=== PATIENT | male | born 1980 | race Caucasian/White ===

== ENCOUNTER 2019-12-14 16:39 | Day surgery (SDC) | payer BC, SELFPAY ==
[2019-12-14] VITALS (7 sets, daily range): BP systolic 119–135; BP diastolic 72–90; PULSE 56–101; RESP 15–17; TEMP 36.2–37; O2SAT 94–99; BMI 22.8
--- NOTE | 2019-12-14 | HERN_PTH ---
PATIENT: KORI ARRIETA LOC: [facility] U#:[id number] AGE/SX: 39/M ROOM: RE12/14/[address]: Dr. Ileana Liu MD : 1980 BED: DIS: 12/15/2019 SPEC #: [id number] RECD: 12/16/19 07:35 STATUS: NELLY CARLEEN #: [id number] EDUARDO: 12/14/19 00:[address]: Ileana Liu DEPT: SURGICAL PATHOLOGY RECD BY: King Rubio ENTERED: 12/16/19 08:37 SP TYPE: Hernia OTHR DR: No Primary Care Phys Tissues: HERNIA Procedures: Surgery Specimen Level II HEADER OPERATION: Repair of left incarcerated inguinal hernia PRE-OP DIAGNOSIS: Incarcerated left inguinal hernia TISSUE SUBMITTED: Hernia sac MICROSCOPIC DIAGNOSIS Hernia sac, herniorrhaphy: Fibrosis and mild chronic inflammation. AM:martha 12/17/19 MICROSCOPIC DESCRIPTION Slides are reviewed. GROSS DESCRIPTION Received in fixative is one container labeled with the patient's name and designated hernia sac. The specimen consists of a piece of fibromembranous sac measuring 8 cm in length and up to 4 cm in diameter. No mass lesion is identified. Converter Operator sections are submitted in one cassette. / SJ:martha 12/16/19 TC:3 CPT: 73178
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
[2019-12-14] MEDS: Ondansetron 4 MG/2 ML Vial IV (17:14)
[2019-12-14] MEDS: Morphine 4 MG/ML Syringe IV ×3 (17:14→20:43)
[2019-12-14] MEDS: 0.9% Normal Saline 1,000 ML 1000 ML IV (17:14)
[2019-12-14 17:20] LABS: Absolute Lymphocyte Count 0.87 X10^3/uL (0.83-4.51); Basophil# 0.04 X10^3/uL; Basophil% 0.3 % (0-1); Eosinophil# 0.03 X10^3/uL; Eosinophils% 0.2 % (0-5); Hematocrit 46.3 % (40-54); Hemoglobin 15.8 g/dL (13.0-16.5); Lymphocyte # 0.87 X10^3/ul (4.0); Lymphocyte % 6.4 % (19-41); Mean Corp Hgb Conc 34.1 g/dL (32-36); Mean Corpuscular Hgb 32.6 pg (27.0-32.0); Mean Corpuscular Volume 95.5 fL (80-94); Mean Platelet Vol. 10.4 fl (6.2-12.0); Monocyte# 0.61 X10^3/uL; Monocyte% 4.5 % (0-10); NRBC Flagged by Analyzer 0 % (0-5); Neutrophil # 12.01 X10^3/uL (2.7-7.7); Neutrophil % 88.3 % (47-70); Platelet Count 291 K/mm3 (150-450); Red Blood Count 4.85 M/mm3 (4.6-6.2); White Blood Count 13.6 K/mm3 (4.4-11.0)
[2019-12-14 17:27] LABS: International Normalized Ratio 1.1; Partial Thromboplast Time 27.9 Seconds (24.1-36.2); Prothrombin Time (Protime)PT. 13.6 SECONDS (11.7-14.9)
[2019-12-14 17:36] LABS: ALB/GLOB Ratio 1.2 RATIO (0.9-2.4); AST(SGOT) 18 U/L (15-37); Alanine Aminotransfer ALT/SGPT 46 U/L (16-61); Albumin, Serum 4.5 g/dL (3.2-5.0); Alkaline Phosphatase 77 U/L (45-117); Anion Gap 8 (5-15); BUN 11 mg/dL (7-18); BUN/Creat Ratio 12.9 RATIO (10-20); Calcium,Total 9.3 mg/dL (8.5-10.1); Chloride 104 mmol/L (98-107); Creatinine, Serum 0.86 mg/dL (0.70-1.30); EST Glomerular Filtration Rate 104 mL/min (>60); Est Glom Filt Rate - Afr Amer 126 mL/min (>60); Estimated Creatinine Clearance 112.41 ml/min; Globulin 3.6 g/dL (2.2-4.2); Glucose 130 mg/dL (74-106); Lipase 103 U/L (73-393); Potassium 3.5 mmol/L (3.5-5.1); Protein, Total 8.1 g/dL (6.4-8.2); Sodium Level 139 mmol/L (136-145)
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
[2019-12-14] MEDS: Cefazolin 2 GM in 0.9% Normal Saline 100 ML IV (22:07)
[2019-12-14 22:48] LABS: Probe Check PASS; Specimen Processing Control PASS
[2019-12-14] MEDS: Bupivacaine 0.25% 30 ML Vial (23:28)
--- NOTE | 2019-12-14 23:29 | OP.PCM_ITS ---
Report of Operation Date of Procedure: 12/14/19 Pre-Operative Diagnosis: incarcerated left femoral hernia Post-Operative Diagnosis: same Surgery/Procedure Performed:: repair of incarcerated left femoral hernia Description of Surgical Findings:: large amount of scar tissue in the area from patient's previous orthopedic injuries with attenuated fascia in the area, incarcerated left femoral hernia with omentum and small bowel - no gangrene noted Type of Anesthesia:: General Anesthesiologist: Xiomy Loomis Specimen's removed: hernia sac Estimated Blood Loss (mL): 20 Fluids Replaced: 1000 ml RL Description of Procedure: After informed consent was obtained, the patient was brought to the Operating Room. Appropriate time out protocol was followed. The patient was placed in the supine position. The patient was then placed under anesthesia. The left groin area and lower torso and genitalia were then prepped with a sterile surgical skin preparation. Sterile surgical drapes were placed. This skin and subcutaneous tissues were then widely infiltrated with the local anesthetic. A skin incision was then made with a 15 blade scalpel over a previous incisional scar from the patient's previous orthopedic surgeries. This was slightly superior to the hernia site. The incision was carried down to the subcutaneous tissues. There was a large amount of scar tissue from the patient's previous surgery thus making delineation of the tissues and fascial layers difficult. The external oblique fascia was identified and an incision was made along its fibers, carefully avoiding any blood vessels/nerves. The fascia was followed distally until the external inguinal ring was noted and the hernia appeared tightly constricted at this point. This constriction was released. Of note, is that the patient's spermatic cord was more medial than normal anatomy - this may due to the patient's previous orthopedic surgeries. The incarcerated sac, once freed up, was able to be opened. There was a large amount of peritoneal fluid that emanated (having been trapped in the sac and there was small bowel and a large portion of omentum that had been also trapped in this sac. The tissues were adherent to the inside lining of this sac and therefore was by blunt and sharp dissection. Any hemorrhage was controlled with electrocautery. The omentum and small bowel, once freed from the sac, was then returned into the intraabdominal space. The sac was dissected free of surrounding tissues. The peritoneal sac opening was then closed with running 3-0 vicryl suture and the excess sac was transected and forwarded to pathology for analysis. Once the hernia was properly reduced, the anatomy was appropriately identified for repair. The spermatic cord had been from the hernia sac and replaced in its proper anatomical position. The peritoneal sac had traversed from the fe moral space and thus was anatomically consistent with a femoral hernia. Therefore, a Darcy type hernia repair would be required. However, because of the incarceration of bowel contents, I had told the patient that I would not use mesh for concern for infection and therefore there is a high likelihood of recurrence. Because the patient's previous surgeries and the resultant scar tissue, it was difficult to release the confluence of the transversalis and internal oblique fascia to suture it to James's ligament. Therefore a relaxing incision was made in the anterior rectus sheath so that the tissues could be approximated to James's ligament without tension. Thus the confluence of the transversalis and internal oblique fascia were approximated to James's ligament using interrupted 0 vicryl suture. This was done from the pubic tubercle to the level of overlying the femoral vessels and the internal ring was re-created and just large enough for the tip of my finger. The spermatic cord was then replaced in its proper anatomical position. The external oblique fascia was then reapproximated over the spermatic cord to close the roof of the inguinal canal with a running 0 vicryl suture. Lisa's fascia was reapproximated with interrupted 3-0 vicryl sutures. Each layer was carefully checked for hemostasis and any bleeding was controlled with electrocoagulation. The skin incision was reapproximated with a running 4-0 Monocryl suture. Sponge, needle and instrument count was verified and correct at time of closure. Cavilon and steristrips were placed to reinforce the skin closure and a sterile opsite dressing was applied. The patient was brought from to the Recovery Room in stable condition. - Complications none noted - Admit VTE Documentation VTE Present on Admission: Yes VTE Mechan Device Prophylaxis: SCD's
[2019-12-15] VITALS: BP 118/74; BP 135/90; PULSE 87; RESP 16; O2SAT 97
[2019-12-15 00:15] VITALS: BP 111/69; BP 135/90; PULSE 73; RESP 16; TEMP 36.4; O2SAT 97
[2019-12-15 00:35] VITALS: BP 109/71; PULSE 68; RESP 16; TEMP 36.6; O2SAT 98; BMI 23.0
[2019-12-15 00:38] VITALS: BMI 23.0
[2019-12-15 02:35] VITALS: BP 115/68; PULSE 81; RESP 18; TEMP 37.1; O2SAT 97
[2019-12-15 04:50] VITALS: BP 107/63; PULSE 93; RESP 16; TEMP 36.6; O2SAT 97
[2019-12-15 08:22] VITALS: BP 131/83; PULSE 78; RESP 18; TEMP 37.3; O2SAT 100
--- NOTE | 2019-12-15 08:23 | NURSING ---
pt offerred norco but declines at this time
[2019-12-15] MEDS: Lactated Ringers 1,000 ML 100 ML IV (09:00)
[2019-12-15] MEDS: Ibuprofen 600 MG Tablet PO (10:43)
--- NOTE | 2019-12-15 11:13 | PCM.DC.HER ---
Discharge Diet: No Restrictions - if you feel constipated, may take over the counter laxatives, drink plenty of fluids Discharge Activity: Return to Normal Activity, May not drive while taking narcotic pain medications. Lifting Restrictions: no lifting/pushing/pulling greater than 20 pounds until January 27, 2020 Call your doctor if your incision/area has: Continuous Slow Oozing, Foul Smelling Discharge Call your doctor if you observe: Fever of 101 or Higher Additional Dressing/Incision Instructions:: Leave dressing in place. May get wet in shower. Do not soak - no tub baths/swimming. Apply ice to area liberally for comfort and as tolerated Additional Instructions: Recommended pain control regimen - May take 600 mg ibuprofen (Motrin) and then in 3-4 hours, may take 650 mg acetaminophen (Tylenol), then in 3-4 hours may take 600 mg ibuprofen, then in 3-4 hours may take 650 mg acetaminophen and so on for 2-3 days May take narcotic pain medication for pain that is not controlled by above and at night for comfort through the night Leave dressings in place May get dressings wet in shower - do not scrub in the area and pat dry Do not soak - no tub baths/swimming If dressing appears to be soiled/open at one end/no longer sealed - may remove dressing but leave site uncovered (do not replace with any type of dressing) - leave steristrips in place - may get wet but do not scrub in the area and pat dry Swelling and bruising will occur in the area of the incision and also the scrotum Ice packs applied to the area will help, apply as long as tolerated and for your comfort Also can elevate scrotum by lying in a Lazy-boy chair position with legs up and place a folded towel across your upper thighs, place scrotum on top of towel and this will help drain the extra fluid from the scrotum back into your torso Allergies/Adverse Reactions: Allergies No Known Allergies Allergy (Verified 12/14/19 16:39) Medications to take at Discharge Hydrocodone Bitart/Apap 5-325 [[place] 5MG-325MG] 1 tab PO Q8H PRN PRN 3 Days #9 tab 12/15/19 The following prescriptions were given: Hydrocodone Bitart/Apap 5-325 [[place] 5MG-325MG] 1 tab PO Q8H PRN PRN 3 Days #9 tab PRN Reason: Pain Score 6-10/10 Prescription Printed Primary Care Physician: Care Physician,No Primary [Primary Care Provider] - Test Results: Test results from this visit will be discussed in further detail at your follow-up appointment, if applicable. Please Follow Up With: Ileana Liu MD - call - please call with any questions or concerns When: to be seen in office in 10-14 days, please call for date and time, thank yo
== END 2019-12-15 13:15 | disposition home or self-care (01) ==
LOC: ED 12-15 15:32 → SDC 12-15 15:32 → MS3 12-15 15:34
PROVIDERS: Anesthesiology; Emergency Provider Emergency Medicine; Visit Provider Surgery
PROC: (CPT 49553; principal; 2019-12-14 21:00)
DX: K41.30 Unilateral femoral hernia, with obstruction, without gangrene, not specified as recurrent (principal); K40.30 Unilateral inguinal hernia, with obstruction, without gangrene, not specified as recurrent; Z11.59 Encounter for screening for other viral diseases
CPT/HCPCS: 49553; 74177; 80053; 83690; 85025; 85610; 85730; 87635; 88302; 94799; 99284; J7030; J7120; Q9967; A4216; J2405; U0003